=== PATIENT | female | born 1965 | race Caucasian/White ===

== ENCOUNTER 2022-03-18 07:37 | Outpatient (CLI) | payer OTHER, SELFPAY ==
--- NOTE | 2022-03-18 08:52 | XR_ITS ---
WS: [id number] Lumbar spine, 3 views, 03/18/2022 Clinical Data: M54.9 - Dorsalgia, unspecified Comparison: None. Findings: No compression fractures or subluxation is seen. No disc space narrowing is seen. The transverse proc esses and SI joints are normal. There is a 0.3 cm subluxation of L4 on L5. Minimal anterior spurring of all the lumbar vertebral bodies is present. XR/XR lumbar spine 2-3V* [id number] Impression: 1. Minimal anterior spurring of the lumbar vertebral bodies. 2. Anterior subluxation of 0.3 cm of L4 on L5.
--- NOTE | 2022-03-18 08:52 | XR_ITS ---
WS: [id number] Thoracic spine, 3 views, 03/18/2022 Clinical Data: M54.9 - Dorsalgia, unspecified Comparison: None. Findings: No compression fractures are seen. The disc heights are normal. The paravertebral regions are normal. XR/XR thoracic spine 3V* [id number] Impression: Negative thoracic spine.
== END 2022-03-18 07:38 | disposition home or self-care (01) ==
LOC: RAD 07:48
PROVIDERS: Visit Provider Nurse Practitioner Family
DX: M54.6 Pain in thoracic spine (principal); S33.140A Subluxation of L4/L5 lumbar vertebra, initial encounter; G89.29 Other chronic pain; X58.XXXA Exposure to other specified factors, initial encounter
CPT/HCPCS: 72072; 72100